=== PATIENT | male | born 1995 ===

== ENCOUNTER 2016-09-29 19:05 | Emergency (ER) | payer OTHER ==
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
== END 2016-09-29 19:54 | disposition home or self-care (01) ==
LOC: UCEAST 19:05
DX: T75.1XXA Unspecified effects of drowning and nonfatal submersion, initial encounter (principal); F12.90 Cannabis use, unspecified, uncomplicated; T18.0XXA Foreign body in mouth, initial encounter; Y93.11 Activity, swimming
CPT/HCPCS: 99201; G0463